=== PATIENT | female | born 1950 | race African-American/Black ===

== ENCOUNTER 2018-09-28 12:38 | Observation (INO) | payer MEDICARE ==
[~2018-09-28 12:38] MED LIST: ANCEF/STERILE WATER 2 GM/20 ML 2 GM/20 ML SYRINGE IV NR; LACTATED RINGERS 1,000 ML IV SCH; NEURONTIN PO SCH; TYLENOL PO ONE
[2018-09-28] MEDS ORDERED: ZOFRAN IV PRN (13:31)
[2018-09-28] MEDS ORDERED: SUBLIMAZE IV PRN (13:31)
--- NOTE | 2018-09-28 13:36 | Anesthesia Consultation ---
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
--- NOTE | 2018-09-28 13:43 | Anesthesia Day of Surgery ---
Anesthesia Day of Surgery - Day of Surgery Patient Examined: Yes Patient H&P Reviewed: Yes Patient is NPO: Yes
[2018-09-28] MEDS ORDERED: SUBLIMAZE IV SCH (13:48)
[2018-09-28] MEDS ORDERED: NEURONTIN PO NR (14:00)
[2018-09-28] MEDS ORDERED: VERSED IV NR (14:00)
[2018-09-28] MEDS ORDERED: TYLENOL PO ONE (14:00)
[2018-09-28 14:02] LABS: INR 1.02 (0.87-1.13)
[2018-09-28 14:03] LABS: Partial Thromboplastin Time 24.2 Sec. (24.2-36.6)
[2018-09-28] MEDS ORDERED: TORADOL ONE (18:42)
[2018-09-28] MEDS ORDERED: DIPRIVAN 10 MG/ML IV ONE (18:43)
[2018-09-28] MEDS ORDERED: SUBLIMAZE ONE (18:43)
[2018-09-28] MEDS ORDERED: XYLOCAINE MPF 2% ONE (18:43)
[2018-09-28] MEDS ORDERED: ZEMURON IV ONE (18:43)
[2018-09-28] MEDS ORDERED: ZOFRAN ONE (18:43)
[2018-09-28] MEDS ORDERED: DECADRON ONE (18:43)
--- NOTE | 2018-09-28 19:01 | Short Stay Summary ---
Short Stay Documentation Date of service: 09/28/18 - History H&P: obtained from office - Allergies and Medications Current Medications: Allergies shellfish derived Allergy (Verified 09/21/18 11:20) Hives Vwbgelm-Aoz-Jms Reductase Inhibitor Allergy (Verified 09/21/18 11:20) MUSCLE WEAKNESS Home Medications Medication Instructions Recorded Confirmed Last Taken Type Amitriptyline [Elavil] 25 mg PO DAILY 09/21/18 09/28/18 09/27/18 09:00 History Apixaban [Eliquis] 5 mg PO BID 09/21/18 09/28/18 09/24/18 09:00 History Digoxin [Lanoxin] 0.25 mg PO DAILY 09/21/18 09/28/18 09/27/18 20:00 History Omeprazole 20 mg PO DAILY 09/21/18 09/28/18 09/27/18 09:00 History Travoprost [Travatan Z] 1 drop OP DAILY 09/21/18 09/28/18 09/27/18 09:00 History dilTIAZem [CarDIZEM] 60 mg PO TID 09/21/18 09/28/18 09/28/18 08:00 History hydrALAZINE [Apresoline] 25 mg PO Q8HR 09/21/18 09/28/18 09/28/18 08:00 History Active Medications Celecoxib (Celebrex) 200 mg PO PREOP NR Stop: 09/28/18 23:00 Last Admin: 09/28/18 14:10 Dose: 200 mg Documented by: Fentanyl (Sublimaze) 50 mcg IV Q5MIN PRN PRN Reason: Pain , Severe (7-10) Fentanyl (Sublimaze) 100 mcg IV ONCE ALEJO Stop: 09/28/18 23:00 Last Admin: 09/28/18 14:15 Dose: 100 mcg Documented by: Gabapentin (Neurontin) 300 mg PO PREOP NR Stop: 09/28/18 23:00 Last Admin: 09/28/18 14:10 Dose: 300 mg Documented by: Lactated Ringer's (Lactated Ringers) 1,000 mls @ 75 mls/hr IV DIRECT ALEJO Last Admin: 09/28/18 14:10 Dose: 75 mls/hr Documented by: Cefazolin Sodium (Ancef/Sterile Water 2 Gm/20 Ml) 2 gm in 20 mls @ 80 mls/hr IV PREOP NR; Protocol Stop: 09/28/18 23:59 Midazolam HCl (Versed) 2 mg IV PREOP NR Stop: 09/28/18 23:59 Last Admin: 09/28/18 14:15 Dose: 2 mg Documented by: Ondansetron HCl (Zofran) 4 mg IV ONCE PRN PRN Reason: Nausea And Vomiting - Physical exam General appearance: no acute distress Lungs: Normal air movement Gastrointestinal: tenderness (mild at site of hernia), no distended, no guarding, obese Neurological: Normal speech - Brief post op/procedure progress note Date of procedure: 09/28/18 (dictation:[id number]) Pre-op diagnosis: symptomatic incisional hernia (incarcerated) Post-op diagnosis: same Procedure: robotic assisted incisional hernia repair IVF-900cc EBL<25cc Anesthesia: GETA Findings: incarcerated omentum in hernia sac Surgeon: AISLINN TRUJILLO Radiographer Mammographer: FAUSTO BECK Estimated blood loss: minimal Pathology: none Condition: stable - Hospital course Hospital course: uneventful. Patient had no issues overnight. In the morning, she had minimal soreness. Vital signs are stable. She was in good spirits. Abdomen was soft. She had appropriate tenderness. Labs were appropriate. Patient was discharged in stable condition. She was tolerating a regular diet. - Disposition Condition at discharge: Stable Disposition: DC-01 TO HOME OR SELFCARE Short Stay Discharge Plan Wound: open to air, keep clean and dry, per your surgeon's advice Special Instructions: no heavy lifting Additional Instructions: Post Operative Instructions No driving until cleared by surgeon. May shower tomorrow. Pat dry the wound or wounds. After surgery, start with a light diet. Consider having a liquid diet first. If you do well, you can advance to a regular diet as you feel comfortable. Apply an ice pack to the wound or wounds for 10-20 minutes at a time. Do this at least 4-5 times a day. You can do it more if he would like. Alternate the use of ibuprofen and Tylenol for the first 2 days. I want you to take these on a scheduled basis. Take 600 mg of ibuprofen every 6 hours. Take 500 mg of Tylenol every 6 hours. You should alternate these 2 medicines. In other words, beginning with the ibuprofen. After 3 hours, take the Tylenol. Keep alternating the 2 drugs every 3 hours. Do this on a scheduled basis for the first 2 days. After that, you can take them as needed. It is very important that you use the prescription pain medicine only for very severe pain. Do not take the prescription medicine before you try using the ibuprofen and Tylenol. We will call you in a couple of days to see how youre doing. If you have any questions or concerns, always feel free to call the clinic at any time. Follow up with: MAYRA STALLINGS MD [Primary Care Provider] - 7 Days AISLINN TRUJILLO MD [Staff Physician] - 7 Days Prescriptions: traMADol [Ultram 50 MG tab] 50 mg PO Q6HR PRN #20 tablet PRN Reason: Pain , Severe (7-10)
[2018-09-28] MEDS ORDERED: VERSED ONE (19:20)
[2018-09-28] MEDS ORDERED: MARCAINE 0.5% INFILTRATI ONE ×2 (20:10→21:28)
[2018-09-28] MEDS ORDERED: XYLOCAINE 1% 20 mL ONE (20:10)
[2018-09-28] MEDS ORDERED: XYLOCAINE 1% 20 mL INFILTRATI ONE (21:28)
[2018-09-29] MEDS ORDERED: MORPHINE IV PRN (00:14)
[2018-09-29] MEDS ORDERED: DILAUDID IV PRN (00:14)
[2018-09-29] MEDS ORDERED: REGLAN IV PRN (00:14)
[2018-09-29] MEDS ORDERED: ZOFRAN IV PRN (00:14)
[2018-09-29] MEDS: TORADOL IV SCH ×3 (01:19→12:13)
[2018-09-29 06:33] LABS: Hematocrit 43.2 % (30.3-42.9); Hemoglobin 14.4 gm/dl (10.1-14.3); Mean Corpuscular HGB Conc 33 % (30-34); Mean Corpuscular Volume 85 fl (79-97); Platelet Count 343 K/mm3 (140-440); Red Blood Count 5.06 M/mm3 (3.65-5.03); Red Cell Distribution Width 14.5 % (13.2-15.2)
[2018-09-29 06:44] LABS: BUN/Creatinine Ratio 10; Blood Urea Nitrogen 8 mg/dL (7-17); Calcium 8.8 mg/dL (8.4-10.2); Hemolysis Index 13
[2018-09-29 11:17] LABS: Band Neutrophils # (Manual) 0.6 K/mm3; Eosinophils % (Manual) 0 % (0.0-4.3); Monocytes % (Manual) 0 % (0.0-7.3); Platelet Estimate Consistent w Auto; RBC Morphology Normal; Total Cells Counted 100
--- NOTE | 2018-09-29 13:34 | Operative Report ---
PREOPERATIVE DIAGNOSIS: Symptomatic incarcerated incisional hernia. POSTOPERATIVE DIAGNOSIS: Symptomatic incarcerated incisional hernia. PROCEDURE: Robotic-assisted incisional hernia repair with mesh. ATTENDING PHYSICIAN: Ysabel Magallanes MD. CEMENTER OIL WELL: Dr. Jiang. ANESTHESIA: General. ESTIMATED BLOOD LOSS: Less than 25 mL. FLUID: 900 mL. FINDINGS: Incarcerated omentum in an approximately 2.5 x 3 cm fascial defect at the previous incision site. No other significant adhesions were noted. SPECIMENS: None. DRAINS: None. COMPLICATIONS: None. DISPOSITION: Stable, transferred to Recovery Room. INDICATIONS: This is a 67-year-old female who presents to the office with complaints of abdominal wall pain in an area of a prior surgery. CT scan showed evidence of a supraumbilical fascial defect with herniated omentum. The patient was assessed to be in need for repair. Procedure, risks and benefits were explained to the patient. Risks included but were not limited to infection, bleeding, pain, injury to surrounding structures, possible need for further procedures in the future. The patient understood and consented. OPERATIVE NOTE: The patient was brought to the operating room and placed on table in supine position. After adequate general anesthesia was established, arms were tucked. SCDs were in place. Antibiotics have been given. Sterile prep and drape was performed. Arms had to be tucked with sleds. All pressure points were padded. Preoperative antibiotics had been administered. Timeout was called. I began by placing a Veress needle in the left upper quadrant and I was able to insufflate in the first attempt. Once the abdomen was insufflated, I placed a 5 mm port in the right lower quadrant. Using the Optiview technique, I entered the peritoneal cavity safely. There was no injury to the underlying structures where the Veress needle had been inserted. This was removed. We then placed additional ports under direct vision all along the right side of the abdomen. The patient was left in the supine position. The robot was docked and then I proceeded to the console. I began by taking down the incarcerated omentum in the hernia sac. I was able to remove it completely. We did have some bleeding that we controlled with the bipolar. We later had to examine this area and cauterized additional areas. Ultimately, we ended up putting Jeffrey over that area as a precaution. Continuing on once the incarcerated contents were reduced, I then began the repair by creating a peritoneal flap. I was able to successfully create a flap without defects all the way to the left side of the abdomen. We had a very good space created such that the 11.2 cm in diameter circular mesh laid very nicely and was flat against the anterior abdominal wall. Using a V-Loc suture, I closed the fascial defect and was able to incorporate some of the herniated sac to minimize potential for seroma formation. This closure looked very good. We then placed the mesh. It laid very well. I secured it with 2-0 Vicryl sutures on the left and right sides. We had excellent hemostasis. I then proceeded to close the flap with a running 3-0 V-Loc suture. There was a small gap in the middle that I used the second V-Loc, a 3-0 V-Loc suture to close that. Everything looked very good. At the end, I was very happy. We divided the falciform ligament as there was a defect behind it such that I was concerned this could be a cause for an internal hernia. There was no bleeding from the falciform ligament. As mentioned, we examined the omental fat that we reduced. We thoroughly irrigated, checked the area and then as a precaution at the end, we put Jeffrey over that area. We saw no evidence of any bleeding. There was no blood that had pooled in the abdomen to suggest a significant active bleed. We closed the 12 mm port site with a Epifanio-Meme fascial closure device using a 0 Vicryl stitch. Two stitches were placed. The rest of the ports were removed. The abdomen was desufflated. Additional local was injected. We closed the skin sites with 4-0 Monocryl subcuticular stitches. Skin was cleaned and dried. Dermabond was placed. The patient tolerated the procedure well. There were no complications. All counts were correct at the end of the case. JOB# [id number] MIKAELA/PRATEEK
--- NOTE | 2018-09-29 17:08 | Post Anesthesia Evaluation ---
- Post Anesthesia Evaluation Patient Participated: Yes Airway Patent: Yes Stable Respiratory Function: Yes Nausea/Vomiting: No Temp > 96.8F: Yes Pain Manageable: Yes Adequeate Hydration: Yes Anesthesia Complications: No Block Receding Appropriately: Yes
[2018-10-02 00:15] VITALS: BP 93/43
== END 2018-09-29 13:36 | disposition home or self-care (01) ==
LOC: OR 12:38 → 3B-SURG 22:48
PROVIDERS: ADMIT Surgery; ATTEND Surgery
DX: K43.2 Incisional hernia without obstruction or gangrene (principal); F32.9 Major depressive disorder, single episode, unspecified; E78.00 Pure hypercholesterolemia, unspecified; I10 Essential (primary) hypertension; K21.9 Gastro-esophageal reflux disease without esophagitis; Z91.013 Allergy to seafood
CPT/HCPCS: 36415; 49655; 80048; 82962; 85007; 85025; 85610; 85730; 94760; 96374; 96376; C1781; G0378; J0690; J1100; J1885; J2250; J2405; J2704; J3010; J7120; S2900

== ENCOUNTER 2021-01-11 10:29 | Outpatient (CLI) | payer MEDICARE ==
--- NOTE | 2021-01-11 12:09 | Ultrasound Report ---
ULTRASOUND ABDOMEN, COMPLETE INDICATION / CLINICAL INFORMATION: ABDOMINAL PAIN LIVER/PANCREAS. COMPARISON: CT dated 07/29/18 FINDINGS: PANCREAS: Increased echogenicity likely representing fatty infiltration. No acute abnormality. ABDOMINAL AORTA: Atherosclerotic calcification but no acute abnormality. IVC: No significant abnormality. LIVER: Enlarged measuring greater than 21 cm in length. Moderate diffuse increased echogenicity. No f ocal hepatic lesion. GALLBLADDER: Cholecystectomy. BILE DUCTS: No significant abnormality. Common bile duct measures 5.6 mm. KIDNEYS: Right: No significant abnormality. Left: No significant abnormality. SPLEEN: Borderline enlarged measuring 13.5 cm. FREE FLUID: None. ADDITIONAL FINDINGS: None. IMPRESSION: 1. Hepatomegaly with hepatic steatosis. No change. 2. Borderline splenomegaly. 3. Possible pancreatic fatty infiltration/steatosis. Signer Name: Duane Sin MD Signed: 01/11/2021 12:04 PM Workstation Name: [id number]
== END 2021-01-11 10:30 | disposition home or self-care (01) ==
LOC: US 10:29
PROVIDERS: ATTEND Internal Medicine
DX: K76.0 Fatty (change of) liver, not elsewhere classified (principal); R16.2 Hepatomegaly with splenomegaly, not elsewhere classified
CPT/HCPCS: 76700